=== PATIENT | male | born 1995 | race African-American/Black ===

== ENCOUNTER 2017-01-09 20:20 | Emergency (ER) | payer OTHER ==
[~2017-01-09] VITALS: Ht 165.1 cm; Wt 54.4 kg
[2017-01-09 20:34] VITALS: BP 117/76
[2017-01-09] MEDS ORDERED: NORCO 5/3251 TABLET PO (21:18)
== END 2017-01-09 21:40 | disposition home or self-care (01) ==
LOC: EME 20:20
PROC: 2W3EX1Z Immobilization of Right Hand using Splint (ICD-10-PCS; principal; 2017-01-09)
DX: S62.304A Unspecified fracture of fourth metacarpal bone, right hand, initial encounter for closed fracture (principal); W22.09XA Striking against other stationary object, initial encounter; F17.200 Nicotine dependence, unspecified, uncomplicated
CPT/HCPCS: 73130; 99281; 99282